=== PATIENT | female | born 1990 ===

== ENCOUNTER 2024-11-01 05:20 | Day surgery (SDC) | payer OTHER ==
[2024-10-25 13:56] VITALS: BP 121/79
[~2024-11-01] VITALS: Ht 162.6 cm; Wt 68.0 kg
[2024-11-01] MEDS ORDERED: IBU600 MG PO (08:25)
== END 2024-11-01 12:30 | disposition home or self-care (01) ==
LOC: CIR.AMB 05:20
PROVIDERS: ATTEND Obstetrics & Gynecology Gynecology
DX: N72 Inflammatory disease of cervix uteri (principal); N92.1 Excessive and frequent menstruation with irregular cycle